=== PATIENT | female | born 1975 | race Caucasian/White ===

== ENCOUNTER 2020-05-11 15:03 | Emergency (ER) | payer BC ==
[2020-05-11] MEDS ORDERED: diphenhydrAMINE 50 MG/ML SDV IVPUSH ONE (16:55)
[2020-05-11] MEDS ORDERED: Famotidine 20 MG/2 ML SDV IVPUSH ONE (16:55)
[2020-05-11] MEDS ORDERED: methylPREDNISolone Sodium Succinate 125 MG/2 ML SDV IVPUSH ONE (16:55)
[2020-05-11] MEDS ORDERED: Sodium Chloride 0.9% 1,000 ML IV ONE (16:55)
--- NOTE | 2020-05-11 18:41 | EDM.PDOC ---
Scribed by Fozia Martinez 05/11/20 2348 for Jaqueline Negrete NP ED HPI GENERAL MEDICAL PROBLEM - General Chief Complaint: Allergic Reaction Stated Complaint: FULL BODY RASH, AND IN MOUTH CAME FROM ALTRU Time Seen by Provider: 05/11/20 16:37 Source of Information: Reports: Patient, RN, RN Notes Reviewed History Limitations: Reports: No Limitations - History of Present Illness INITIAL COMMENTS - FREE TEXT/NARRATIVE: Patient is a 44-year-old female who presents to the ER with complaint of rash that is itchy. This began yesterday A.M. at 4 A.M. His mouth feels "funny" and tongue is "funny". She has swelling in the throat. She also has had chills. No fever, nausea, vomiting, diarrhea, chest pain or shortness of breath. 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 (see below) Other Treatments GENERAL MANAGER IN [employer]INING: Benadryl - Related Data Allergies Allergy/AdvReac Type Severity Reaction Status Date / Time SEASONAL ALLERGIES Allergy Sneezing Uncoded 05/08/13 10:55 Home Meds: Home Meds Fluticasone Propionate [Fluticasone Propionate [place]] 50 mcg NASBOTH DAILY 05/08/13 [History] Multivitamin with Minerals [Multiple Vitamin] 1 tab PO DAILY 05/08/13 [History] Pantoprazole [Protonix] 40 mg PO DAILY 05/08/13 [History] buPROPion HCL [Wellbutrin SR] 150 mg PO BID 05/11/20 [History] Past Medical History Gastrointestinal History: Reports: GERD 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 History: Reports: Psychiatric History: Reports: Anxiety, Depression - Infectious Disease History Infectious Disease History: Reports: Chicken Pox - Past Surgical History HEENT Surgical History: Reports: Tonsillectomy Female Surgical History: Reports: Tubal Ligation Social & Family History - Tobacco Use Tobacco Use Status *Q: Current Every Day Tobacco User Years of Tobacco use: 23 Packs/Tins Daily: 0.7 - Caffeine Use Caffeine Use: Reports: Soda - Recreational Drug Use Recreational Drug Use: No ED ROS ALLERGIC REACTION - Review of Systems Review Of Systems: Comprehensive ROS is negative, except as noted in HPI. ED EXAM GENERAL NO PERIP PULSE - Physical Exam Exam: See Below Exam Limited By: No Limitations General Appearance: Alert, WD/WN, No Apparent Distress Ears: Normal External Exam, Normal Canal, Hearing Grossly Normal, Normal TMs Nose: Normal Inspection, Normal Mucosa, No Blood Throat/Mouth: Normal Inspection, Normal Lips, Normal Teeth, Normal Gums, Normal Oropharynx, Normal Voice, No Airway Compromise Head: Atraumatic, Normocephalic Neck: Normal Inspection, Supple, Non-Tender, Full Range of Motion Respiratory/Chest: No Respiratory Distress, Lungs Clear, Normal Breath Sounds, No Accessory Muscle Use, Chest Non-Tender Cardiovascular: Normal Peripheral Pulses, Regular Rate, Rhythm, No Edema, No Gallop, No JVD, No Murmur, No Rub GI/Abdominal: Normal Bowel Sounds, Soft, Non-Tender, No Organomegaly, No Distention, No Abnormal Bruit, No Mass (Female) Exam: Deferred Rectal (Female) Exam: Deferred Back Exam: Normal Inspection, Full Range of Motion, NT Extremities: Normal Inspection, Normal Range of Motion, Non-Tender, Normal Capillary Refill, No Pedal Edema Neurological: Alert, Oriented, CN II-XII Intact, Normal Cognition, Normal Gait, Normal Reflexes, No Motor/Sensory Deficits Psychiatric: Normal Affect, Normal Mood Skin Exam: Other (macular urticarial rash generalized.) Lymphatic: No Adenopathy Course - Vital Signs Last Recorded V/S: Last Vital Signs Temp 98.3 F 05/11/20 16:00 Pulse 77 05/11/20 17:13 Resp 14 05/11/20 16:00 BP 110/68 05/11/20 16:00 Pulse Ox 100 05/11/20 17:13 - Orders/Labs/Meds Meds: Medications Discontinued Medications Generic Name Dose Route Start Last Admin Trade Name Freq PRN Reason Stop Dose Admin Diphenhydramine HCl 25 mg 05/11/20 16:55 05/11/20 17:11 Benadryl IVPUSH 05/11/20 16:56 25 mg ONETIME ONE Administration Famotidine 20 mg 05/11/20 16:55 05/11/20 17:09 Pepcid IVPUSH 05/11/20 16:56 20 mg ONETIME ONE Administration Sodium Chloride 1,000 mls @ 999 mls/hr 05/11/20 16:55 05/11/20 17:05 Normal Saline IV 05/11/20 17:55 999 mls/hr .BOLUS ONE Administration Methylprednisolone Sodium Succinate 125 mg 05/11/20 16:55 05/11/20 17:07 Solu-Medrol IVPUSH 05/11/20 16:56 125 mg ONETIME ONE Administration Departure - Departure Time of Disposition: 18:40 Disposition: Home, Self-Care 01 Condition: Good Clinical Impression: Contact dermatitis Qualifiers: Contact dermatitis type: unspecified Contact dermatitis trigger: unspecified trigger Qualified Code(s): L25.9 - Unspecified contact dermatitis, unspecified cause - Discharge Information *PRESCRIPTION DRUG MONITORING PROGRAM REVIEWED*: No *COPY OF PRESCRIPTION DRUG MONITORING REPORT IN PATIENT NICO: No Instructions: Contact Dermatitis, [id number] Forms: ED Department Discharge Additional Instructions: Rx: Hydroxyzine, prednisone Return to the ER with any worsening of symptoms Follow-up with your primary care provider next week if no improvement May use [id number] calamine lotion Avoid any scented body washes, perfumes, laundry detergent, dryer sheets Use Dove sensitive skin body wash or soap May use [id number] hydrocortisone cream for itching as well May use [id number] Benadryl as directed Sepsis Event Note (ED) - Evaluation Sepsis Screening Result: No Definite Risk - Focused Exam Vital Signs: Vital Signs Temp Pulse Resp BP Pulse Ox 05/11/20 17:13 77 100 05/11/20 16:00 98.3 F 99 14 110/68 100 I have read and agree with the documentation that has been completed regarding this visit. By signing this record, I attest that the documentation was completed in my physical presence and is an accurate record of the encounter.
== END 2020-05-11 18:48 | disposition home or self-care (01) ==
LOC: DL.ED 15:03
DX: L25.9 Unspecified contact dermatitis, unspecified cause (principal); K21.9 Gastro-esophageal reflux disease without esophagitis; F41.9 Anxiety disorder, unspecified; F32.9 Major depressive disorder, single episode, unspecified; F17.210 Nicotine dependence, cigarettes, uncomplicated; Z88.8 Allergy status to other drugs, medicaments and biological substances; Z98.51 Tubal ligation status; Z90.49 Acquired absence of other specified parts of digestive tract; Z79.899 Other long term (current) drug therapy
CPT/HCPCS: 96374; 96375; 99282; J1200; J2930; J3490; J7030; 99283